=== PATIENT | male | born 1960 | race Caucasian/White ===

== ENCOUNTER 2022-06-13 08:27 | Day surgery (SDC) | payer OTHER, SELFPAY ==
[2022-06-07 15:15] VITALS: BMI 34.5
[2022-06-08 11:29] VITALS: BMI 33.5
[2022-06-13 08:52] VITALS: BP 172/68; PULSE 66; RESP 18; TEMP 36.5; O2SAT 97
--- NOTE | 2022-06-13 08:59 | P.CONAN_ITS ---
HPI - Anesthesia Eval Consult details Narrative: 62 M for colonoscopy unremarkable stress test ascending thoracic aorta , aneurysm, WILLIAM PMFSH Past Medical History Medical History (Updated 06/08/22 @ 11:29 by Rach Briones RN) Ascending aortic aneurysm BPH (benign prostatic hyperplasia) GERD (gastroesophageal reflux disease) HTN (hypertension) Hx of methicillin resistant Staphylococcus aureus Personal history of COVID-19 Functional capacity: independent ambulation Family History Family history of problems with anesthesia: No Surgical History Surgical History (Updated 06/08/22 @ 11:27 by Rach Briones RN) History of left hip replacement Hx of cholecystectomy Hx of colonoscopy History of Problems with Anesthesia: Yes (Delayed emergence ) Social History Social History Are you a primary animal care assistant to a significant other at home: No Do you presently have visiting nurse or other home services: No Patient Tobacco Use Status: Never used Tobacco Use of substances other than those prescribed or required for medical reasons: No Are you DNR?: No Advance Directives: No (will bring dos) Advance Directives Information Provided: Yes Advance Directives on File: No Meds Allergies Allergy/AdvReac Type Severity Reaction Status Date / Time amoxicillin [AMOXICILLIN] Allergy Unknown RASH,HIVES Verified 06/08/22 11:22 Active Medications: Current Medications Sodium Biphosphate/Sodium Phosphate (Sodium Phosphate,Anson-Dibasic 133 Ml Enema) 133 ml MA ONCE PRN PRN Reason: Poor Colonoscopy Prep Results Home Medications Medication Instructions Recorded Confirmed Last Taken Type albuterol sulfate 90 mcg/actuation 2 puff inhalation QID PRN 06/07/22 06/08/22 Unknown History aerosol inhaler (ProAir HFA) Shortness Of Breath Or Wheezing alfuzosin 10 mg tablet,extended 10 mg PO DAILY 06/07/22 06/08/22 Unknown History release 24 hr amlodipine 5 mg tablet 5 mg PO DAILY 06/07/22 06/08/22 06/13/22 History coenzyme Q10 200 mg capsule 200 mg PO DAILY 06/07/22 06/08/22 06/06/22 History flaxseed oil 1,000 mg capsule 325 mg PO DAILY 06/07/22 06/08/22 06/06/22 History garlic extract 600 mg tablet 600 mg PO DAILY 06/07/22 06/08/22 06/06/22 History loratadine 10 mg tablet (Claritin) 10 mg PO DAILY PRN Allergy Symptoms 06/07/22 06/08/22 Unknown History lorazepam 1 mg tablet 1 mg PO BID PRN Anxiety 06/07/22 Unknown History multivitamin 1 tab PO DAILY 06/07/22 06/07/22 06/06/22 History naproxen sodium 220 mg capsule 220 mg PO Q12H PRN Pain 06/07/22 06/08/22 06/06/22 History omeprazole 20 mg tablet,delayed 20 mg PO DAILY PRN Gastric Reflux 06/07/22 06/08/22 06/13/22 History release red yeast rice 600 mg capsule 600 mg PO DAILY 06/07/22 06/08/22 Unknown History salmon oil 1,000 mg-omega-3 fatty 2 cap PO DAILY 06/07/22 06/08/22 Unknown History acids 210 mg capsule valsartan 160 mg tablet (Diovan) 160 mg PO DAILY 06/07/22 06/08/22 Unknown History Exam Exam Date and Time: June 13, 2022 0859 Height,Weight and Vital Signs: Height 6 ft 1 in Weight 115.212 kg Last Vital Signs Temp 97.7 F 06/13/22 08:52 Pulse 66 06/13/22 08:52 Resp 18 06/13/22 08:52 BP 172/68 H 06/13/22 08:52 Pulse Ox 97 06/13/22 08:52 O2 Del Method 06/13/22 08:52 Airway Mallampati Class: III TM Dist: >3cm Neck ROM: Full Loose/Missing/Broken Teeth: Yes Heart: S1,S2 Lungs: b/l breath sounds Assessment and Plan Assessment Anesthesia Assessment: Anesthesia Plan Discussed and Chart Reviewed Final Anesthetic Review Family History of Problems with Anesthesia: No History of Problems with Anesthesia: Yes (Delayed emergence ) NPO: Yes ASA Class: III Final Preanesthetic Review: Meds/Allgs Chart Reviewed, Consent Obtained/Reviewed and Anes Risks/Benef Reviewed Patient Risk: Intermediate Procedure Risk: Intermediate Anesthetic Plan Anesthetic Plan: MAC: Disposition: Standard PACU
[2022-06-13] MEDS: Lactated Ringers 1,000 ML 80 ML IVCONT (09:27)
[2022-06-13 10:52] VITALS: BP 112/54; PULSE 47; RESP 16; TEMP 36.1; O2SAT 95
--- NOTE | 2022-06-13 10:55 | P.BOP_ITS ---
Brief Operative Note Date of Service: 06/13/22 Pre-op diagnosis: Screening Post-op diagnosis: other (Diverticulosis) Procedure: Colonoscopy to the cecum Surgeon: Humphrey Schwartz Anesthesia: MAC Was an Rv Service Technician used for this Procedure?: No Estimated blood loss (mL): 0 Pathology: none sent Condition: stable Disposition: PACU
--- NOTE | 2022-06-13 11:28 | OP_ITS ---
SURGEON: Humphrey Schwartz MD INDICATIONS: The patient presents for evaluation of colorectal cancer screening. Full consent has been obtained from him for this, including risks of bleeding and perforation. PREOPERATIVE DIAGNOSIS: Colorectal cancer screening. POSTOPERATIVE DIAGNOSIS: PROCEDURE PERFORMED: Colonoscopy to the cecum. ESTIMATED BLOOD LOSS: COMPLICATIONS: ANESTHESIA: Monitored anesthesia care. ASSISTANTS: SPECIMENS: POSTOPERATIVE DIAGNOSES: Colorectal cancer screening, sigmoid diverticulosis, and internal hemorrhoids. DESCRIPTION OF PROCEDURE: The patient was placed in the left lateral decubitus position. The digital rectal exam revealed no abnormalities. The Olympus video pediatric colonoscope was entered into the rectum and advanced easily to the cecum. Once in the cecum, I did identify a normal-appearing cecal pouch with appendiceal orifice and a normal-appearing ileocecal valve. There was transillumination of light deep in the right lower quadrant. The entire cecum and ileocecal valve appeared normal. The scope was slowly withdrawn assessing all mucosal surfaces carefully. Preparation was excellent. I did not visualize any sign of polyps, colitis, nor angiodysplasia. There was a mild amount of sigmoid diverticulosis. In the rectum, the scope was retroflexed visualizing internal hemorrhoids, but no other pathology. The rectal mucosa appeared normal. Scope was straightened and withdrawn from the patient. He tolerated the procedure well and was returned to the recovery area in stable condition. IMPRESSION: 1. Sigmoid diverticulosis. 2. Internal hemorrhoids. PLAN: Given today's negative exam and negative family history, I would recommend a followup colonoscopy in 10 years for further screening. He will otherwise see me on a p.r.n. basis. Humphrey Schwartz MD [facility] / [phone]
== END 2022-06-13 11:26 | disposition home or self-care (01) ==
PROVIDERS: PCP Internal Medicine; Visit Provider Internal Medicine
PROC: 0DJD8ZZ Inspection of Lower Intestinal Tract, Via Natural or Artificial Opening Endoscopic (ICD-10-PCS; CPT 45378; principal; 2022-06-13 09:40)
DX: Z12.11 Encounter for screening for malignant neoplasm of colon (principal); K57.30 Diverticulosis of large intestine without perforation or abscess without bleeding; K64.8 Other hemorrhoids; K21.9 Gastro-esophageal reflux disease without esophagitis; N40.0 Benign prostatic hyperplasia without lower urinary tract symptoms; I10 Essential (primary) hypertension; I71.2 Thoracic aortic aneurysm, without rupture; G47.33 Obstructive sleep apnea (adult) (pediatric); Z79.899 Other long term (current) drug therapy; Z90.49 Acquired absence of other specified parts of digestive tract; Z96.642 Presence of left artificial hip joint; Z86.16 Personal history of COVID-19
CPT/HCPCS: 45378

== ENCOUNTER 2023-08-28 14:40 | Outpatient (REF) | payer OTHER, SELFPAY ==
--- NOTE | ~2023-08-28 | US_ITS ---
EXAMINATION: US VENOUS ULTRASOUND WITH DOPPLER LOWER EXTREMITY, RIGHT CLINICAL INFORMATION: Right leg swelling. COMPARISON: None available. TECHNIQUE: Ultrasound of the deep veins is performed from the hip to the calf with compression sonography and color and pulse Doppler assessment. Spectral analysis with color-flow imaging is performed. FINDINGS: There is normal venous compression and respiratory variation and augmented flow. The visualized common femoral vein, superficial femoral vein, profunda femoral vein, popliteal vein, and the trifurcation region shows no evidence of deep venous thrombosis. There is no significant popliteal fossa cyst. US/US venous duplex LE RT IMPRESSION: No DVT demonstrated in the right lower extremity.
== END 2023-08-28 14:41 | disposition home or self-care (01) ==
LOC: HO.HMGCX 14:40
PROVIDERS: Visit Provider Orthopaedic Surgery
DX: M16.11 Unilateral primary osteoarthritis, right hip (principal); R22.41 Localized swelling, mass and lump, right lower limb
CPT/HCPCS: 93971